=== PATIENT | male | born 1975 | race Two or more races ===

== ENCOUNTER 2016-08-18 11:34 | Emergency (ER) | payer OTHER ==
[~2016-08-18] VITALS: Ht 180.3 cm; Wt 86.2 kg
[2016-08-18] MEDS ORDERED: Bacitracin Oint UD TOPIC ONE (12:15)
[2016-08-18] MEDS ORDERED: Lidocaine 1% 10mg/ml/Epi 0.005mg/ml 30ml vial INJ ONE (12:15)
[2016-08-18] MEDS ORDERED: TdaP Vaccine 0.5ml Syr IM ONE (12:15)
[2016-08-18] MEDS ORDERED: CEPHALEXIN500 MG ORAL (12:22)
[2016-08-18] MEDS ORDERED: BACITRACIN-P28.35 GM TP (12:22)
--- NOTE | 2016-08-18 12:22 | Emergency Room Report ---
History of Present Illness General Chief Complaint: Laceration Source: Patient Present Illness HPI 31-year-old male presents emergency department complaining of open laceration to the right side of his chin since this a.m. Patient was at work and using a drill bit when it slipped and hit him in the face. he denies loss of consciousness, patient denies pain. Patient reports mild bleeding. he states he is not up-to-date with vaccinations tetanus. He denies taking blood thinning medications. Denies numbness tingling or loss of sensation or gross motor movements of the extremities, incontinence of bowel or bladder. Denies CP , Palpitations, LOC, AMS, dizziness, Changes in Vision, Sensation, paresthesias , or a sudden severe headache. Allergies: Coded Allergies: No Known Allergies (Unverified , 08/18/16) Patient History Past Medical History: see triage record Past Surgical History: none Pertinent Family History: none Reviewed Nursing Documentation: PMH: Agreed, PSxH: Agreed Nursing Documentation-PMH Past Medical History: No Stated History Review of Systems All Other Systems: negative except mentioned in HPI Physical Exam Vital Signs Date Time Temp Pulse Resp B/P Pulse Ox O2 Delivery O2 Flow Rate FiO2 08/18/16 11:38 97.5 76 18 137/88 98 Room Air Sp02 EP Interpretation: reviewed, normal General Appearance: no apparent distress, alert, GCS 15, non-toxic Head: normocephalic, other - 3cm lacertion to the right side of the chin. Eyes: bilateral eye PERRL, bilateral eye normal inspection ENT: hearing grossly normal, normal pharynx, no angioedema, normal voice Neck: full range of motion, supple/symm/no masses Respiratory: chest non-tender, lungs clear, normal breath sounds, speaking full sentences Cardiovascular #1: regular rate, rhythm, no edema Musculoskeletal: gait/station normal, normal range of motion, non-tender Neurologic: alert, oriented x3, responsive, motor strength/tone normal, sensory intact, speech normal Psychiatric: judgement/insight normal, memory normal, mood/affect normal Skin: normal color, no rash, warm/dry, well hydrated, laceration - 3cm facial laceration, linear, right side of chin. Lymphatic: no adenopathy Medical Decision Making PA Attestation Dr. Hastings is my supervising Physician whom patient management has been discussed with. Diagnostic Impression: Primary Impression: Laceration ER Course 31-year-old male presents emergency department complaining of open laceration to the right side of his chin since this a.m. Patient was at work and using a drill bit when it slipped and hit him in the face. he denies loss of consciousness, patient denies pain. Patient reports mild bleeding. he states he is not up-to-date with vaccinations tetanus. He denies taking blood thinning medications. Ddx considered but are not limited to laceration, tendon injury, cellulitis, amputation Vital signs: are WNL, pt. is afebrile H&PE are most consistent with: Facial laceration on the chin approx 3 cm in length ORDERS: none required at this time, the diagnosis is clinical ED INTERVENTIONS: -Tetanus vaccine was administered as pt. vaccination status was unknown. - The wound was copiously irrigated with normal saline, and explored for foreign body for which no FB was found. - pt. is anesthetized with 1%lidocaine w. epi. - The wound was approximated and closed using 6 interrupted 6.0 Prolene sutures. -Bacitracin and was applied. Discussed with patient: That we make every effort to approximate the laceration as best as we can so that scarring will be as cosmetically pleasing as possible with our limited cosmetic skill set in the Emergency dept. Regardless of our best efforts there will be scarring after laceration repair. The extent of scarring is unknown at this time. DISCHARGE: At this time pt. is stable for d/c to home. Will provide printed patient care instructions, and any necessary prescriptions. Care plan and follow up instructions have been discussed with the patient prior to discharge. Last Vital Signs Date Time Temp Pulse Resp B/P Pulse Ox O2 Delivery O2 Flow Rate FiO2 08/18/16 11:38 97.5 76 18 137/88 98 Room Air Disposition: HOME, SELF-CARE Condition: Stable Scripts Bacitracin/Polymyxin B Sulfate (BACITRACIN-POLYMYXIN OINTMENT) 28.35 Gm Oint...g. 1 APPLIC TP BID, #28.3 GM Prov: Merary Cheney 08/18/16 Cephalexin* (KEFLEX*) 500 Mg Capsule 500 MG ORAL EVERY 12 HOURS, #14 CAP 0 Refills Prov: Merary Cheney 08/18/16 Departure Forms: Return to Work Return to Work Date: Aug 19, 2016 Work Restrictions: None Return to Full Activity: Aug 19, 2016 Patient Instructions: Laceration Care, Adult Additional Instructions: Take medications as directed. Follow up with PCP in 3-5 days Return sooner to ED if new symptoms occur, or current symptoms become worse. Sutures are to be removed in 8 days - Please note that this Emergency Department Report was dictated using [employer] specialist technology software, occasionally this can lead to erroneous entry secondary to interpretation by the dictation equipment. Merary Cheney Aug 18, 2016 12:21
[2016-08-18 13:00] VITALS: BP 129/88
== END 2016-08-18 13:00 | disposition home or self-care (01) ==
LOC: EMR 12:28
DX: S01.81XA Laceration without foreign body of other part of head, initial encounter (principal); Z23 Encounter for immunization; W29.8XXA Contact with other powered hand tools and household machinery, initial encounter; Y93.9 Activity, unspecified; Y99.0 Civilian activity done for income or pay
CPT/HCPCS: 90471; 90715; 96372